=== PATIENT | male | born 1960 ===

== ENCOUNTER → 2017-11-05 | Emergency (ER) | payer OTHER ==
[~2017-11-05] VITALS: Ht 180.3 cm; Wt 89.8 kg
[~2017-11-05] MED LIST: HUMALOG100 UNIT/1; LANTUS SOL100 UNIT/1; VYTORIN 10-201 EACH
== END | disposition left against medical advice (07) ==
LOC: ER 10:41
DX: Z53.20 Procedure and treatment not carried out because of patient's decision for unspecified reasons (principal)

== ENCOUNTER 2019-05-03 10:05 | Outpatient (CLI) | payer OTHER | END 2019-05-03 10:14 | disposition home or self-care (01) | LOC: RAD 10:05 | DX: R05 Cough (principal) ==

== ENCOUNTER 2019-05-06 07:53 | Outpatient (CLI) | payer OTHER | END 2019-05-06 07:55 | disposition home or self-care (01) | LOC: SONOGRAMA 07:53 | DX: R94.8 Abnormal results of function studies of other organs and systems (principal) ==